=== PATIENT | female | born 1960 | race Caucasian/White ===

== ENCOUNTER 2019-12-09 19:00 | Emergency (ER) | payer OTHER, SELFPAY ==
--- NOTE | ~2019-12-09 | CT_ITS ---
. EXAMINATION: CT facial bones w con DATE: 12/09/2019 20:29 INDICATION: Left-sided facial swelling and dentalgia. TECHNIQUE: Computed tomography (CT) of the facial bones and maxillofacial region was performed withou t intravenous contrast. Coronal reconstructions were obtained. The dose-length product was 329.72 mGy -cm. COMPARISON: None. FINDINGS: Soft tissue swelling with subcutaneous edema without discrete abscess overlying the left mandible. Mu ltiple dental restorations and several scattered dental caries including the anterior premolar and an terior molar along the left mandible but without deeper periapical erosion. No maxillofacial fracture s or cortical erosions. Mild asymmetric enlargement of still normal-sized likely reactive left subman dibular lymph nodes. The deeper spaces of the neck appear normal. Bilateral parotid and submandibular glands appear normal and symmetric. Orbits are normal. Small mucous retention cyst along the floor o f the left maxillary sinus. Mild atherosclerotic calcification without stenosis at the left carotid b ulb. Vasculature is otherwise unremarkable. Mild to moderate upper cervical facet osteoarthritis. IMPRESSION: 1. Nonspecific soft tissue swelling with subcutaneous edema along the left mandible consistent with s ynovitis of indeterminate etiology. No abscess or underlying osseous abnormality. Reviewed, dictated and finalized at location A. IMPRESSION: 1. Nonspecific soft tissue swelling with subcutaneous edema along the left lacy ible consistent with synovitis of indeterminate etiology. No abscess or underly ing osseous abnormality.
[2019-12-09 19:02] VITALS: BP 187/109; PULSE 90; RESP 20; TEMP 36.6; O2SAT 100
--- NOTE | 2019-12-09 20:06 | ED.DENTAL ---
HPI - Dental/Oral General Chief complaint: Dental/Oral Stated complaint: L facial swelling Time Seen by Provider: 12/09/19 19:10 Source: patient Mode of arrival: ambulatory Limitations: no limitations History of Present Illness HPI Narrative: This is a 59-year-old female that presents the emergency department for toothache x1 week. Reports she has a tooth that is broken. Reports over the last week it has become painful. She has been taking [id number] medications with little relief. Reports yesterday she started to have swelling to the area. Denies fever. MD Complaint: tooth pain Location: Tooth # (18) Related Data Allergies Allergy/AdvReac Type Severity Reaction Status Date / Time Penicillins Allergy Unknown Rash Verified 12/09/19 19:06 tramadol Allergy Other Verified 12/09/19 19:06 Review of Systems Review of Systems: Narrative: CONSTITUTIONAL: Denies fever ENT: Reports dentalgia All systems reviewed & are unremarkable except as noted in HPI and below PMFSH Past Medical History Medical History (Updated 12/09/19 @ 21:19 by Danna Lazar PA-C) History of chronic back pain Social History Social History (Updated 12/09/19 @ 20:09 by Danna Lazar PA-C) Smoking status: Never smoker Second hand tobacco smoke exposure: No Alcohol intake: current Substance use: never Gender identity (if verbalized by the patient): Female Exam Narrative: Exam Narrative: GENERAL: Well-appearing, well-nourished, and in no acute distress. HEAD: Normocephalic, atraumatic. EYES: EOMI. ENT: Mucous membranes moist. Oropharynx without tonsillar hypertrophy, exudate or other lesions. Poor dentition. Tooth #18 tender to palpation with surrounding edema. Edema noted to the left side of the mandible. No trismus NECK: Supple. No adenopathy or masses. CHEST: Airway patent EXTREMITIES: Normal range of motion. No edema. SKIN: Warm, dry, no rash. NEURO: No focal deficits. Alert and oriented x3. PSYCH: Normal mood and affect Course Vital Signs Vital signs: Vital Signs Temperature 98 F 12/09/19 19:02 Pulse Rate 90 12/09/19 19:02 Respiratory Rate 20 12/09/19 19:02 Blood Pressure 187/109 H 12/09/19 19:02 Pulse Oximetry 100 12/09/19 19:02 Temperature 98 F 12/09/19 19:02 Pulse Rate 90 12/09/19 19:02 Respiratory Rate 20 12/09/19 19:02 Blood Pressure 187/109 H 12/09/19 19:02 Pulse Oximetry 100 12/09/19 19:02 MDM - Dental/Oral MDM Narrative Medical decision making narrative: Patient presents the emergency department for toothache x1 week. She is afebrile and nontoxic-appearing. CBC with lymphocytopenia with red blood cell count of 3. Patient also thrombocytopenic with platelets of 66. This appears to be chronic for her. Spoke with patient about this and reports she has been seen by quick mixer operator for this in the past. No concerning elevation in inflammatory markers. Mild hypokalemia on metabolic panel.. Patient given a dose of oral potassium in the ED. CT scan of the facial bones shows nonspecific soft tissue swelling with subcutaneous edema along the left mandible, no abscess. Patient given a dose of IV antibiotics in the ED. Will be started on oral antibiotics. Was instructed to follow-up with her dentist. Patient was given warnings to return to the ER Lab Data Attestation: I reviewed the patient's lab results. Result diagrams: 12/09/19 20:08 12/09/19 20:39 Labs: Lab Results 12/09/19 12/09/19 12/09/19 Range/Units 20:08 20:24 20:39 WBC 3.0 L (4.5-10.0) K/mm3 RBC 3.76 L (4.2-5.4) M/mm3 Hgb 11.9 L (12.0-15.0) g/dL Hct 35.7 L (37.0-47.0) % MCV 94.9 (80-100) fl MCH 31.6 (26-34) pg MCHC 33.3 (32-36) g/dl RDW 14.4 (11.5-14.5) % Plt Count 66 L (150-375) k/mm3 MPV Not Reportable Immature Gran % (Auto) 0.0 (0-0.5) % Neut % (Auto) 64.4 (45.5-73.1) % Lymph % (Auto) 21.3 (18.3-44.2) % Ashley
[2019-12-09 20:23] LABS: Basophils Percent Auto 0.3 % (0.2-1.2); Eosinophils Absolute Auto 0.1 K/mm3 (0-0.3); Eosinophils Percent Auto 2.3 % (0-4.4); Hematocrit 35.7 % (37.0-47.0); Hemoglobin 11.9 g/dL (12.0-15.0); Immature Platelet Fraction Pct 2.9 % (0.9-11.2); Lymphocytes Absolute Auto 0.64 K/mm3 (0.9-3.2); Lymphocytes Percent Auto 21.3 % (18.3-44.2); Mean Corpuscular HGB Conc 33.3 g/dl (32-36); Mean Corpuscular Hemoglobin 31.6 pg (26-34); Mean Corpuscular Volume 94.9 fl (80-100); Monocytes Absolute Auto 0.4 K/mm3 (0.1-0.6); Monocytes Percent Auto 11.7 % (2.6-8.5); Neutrophils Absolute Auto 1.9 K/mm3 (1.3-6.7); Neutrophils Percent Auto 64.4 % (45.5-73.1); Platelet Count Result 66 k/mm3 (150-375); Red Blood Count 3.76 M/mm3 (4.2-5.4); Red Cell Distribution Width 14.4 % (11.5-14.5)
[2019-12-09 20:26] LABS: Estimated CRCL calculation 130 ml/min; Estimated Glomerular Filt Rate > 60
--- NOTE | 2019-12-09 20:37 | PC.NURSE ---
LAB STATES BLOOD HEMOLYZED. CONFERENCE INTERPRETER AT BEDSIDE TO REDRAW BLOOD
[2019-12-09 21:00] LABS: Blood Urea Nitrogen 8 mg/dL (7-17); CRP 1.8 mg/dL (<1.0); Calcium 8.2 mg/dL (8.4-10.2); Carbon Dioxide 26 mmol/L (22-30); Chloride 106 mmol/L (98-107); Estimated CRCL calculation 158 ml/min; Estimated Glomerular Filt Rate > 60; Glucose 85 mg/dL (65-105); Potassium 3.3 mmol/L (3.4-5.0); Sodium 136 mmol/L (137-145)
[2019-12-09 21:00] LABS: Erythrocyte Sedimentation Rate 25 mm/hr (0-20)
[2019-12-09] MEDS: POTASSIUM CHLORIDE 20 MEQ TABLET PO (21:38)
[2019-12-09] MEDS: CLINDAMYCIN 600 MG/NS 50 ML 600 MG/50 ML PIGGYBACK 100 MG IVPB (21:38)
[2019-12-09 22:33] VITALS: BP 164/82; PULSE 76; RESP 20; O2SAT 97
== END 2019-12-09 22:34 | disposition home or self-care (01) ==
PROVIDERS: Physician Assistant; Emergency Provider Emergency Medicine; PCP Nurse Practitioner Adult Health
DX: K08.89 Other specified disorders of teeth and supporting structures (principal); R93.0 Abnormal findings on diagnostic imaging of skull and head, not elsewhere classified
CPT/HCPCS: 36415; 70487; 80048; 85025; 85055; 85652; 86140; 96365; 99284; A9270; Q9967

== ENCOUNTER 2019-12-23 16:31 | Emergency (ER) | payer OTHER, SELFPAY ==
--- NOTE | ~2019-12-23 | CT_ITS ---
EXAMINATION: CT facial & cervical spine wo DATE: 12/23/2019 17:08 INDICATION: Patient fell and struck face. Facial, neck injury TECHNIQUE: Computed tomography (CT) of the facial bones and maxillofacial region was performed withou t intravenous contrast. Automated exposure control and iterative reconstruction technique were employ ed. Exam dose: 490.26 mGy-cm total exam DLP. COMPARISON: None. FINDINGS: No facial fracture is evident. There is a metallic sutures, psychotic arches, orbital rims and thibodeaux are intact. No mandible fracture or dislocation. The ocular globes are intact. No retrobulbar hematoma. Small mucous retention cyst in the floor of th e left maxillary sinus. The paranasal sinuses are otherwise unremarkable. There is moderately severe degenerative disease with prominent posterior spurring at C5-6. C1 and C2 are normally aligned and the odontoid process is intact. No fracture or dislocation or lock ed facet or prevertebral soft tissue swelling. IMPRESSION: No facial and cervical spine fracture Moderately severe degenerative disc disease and prominent posterior spurring at C5-6 Reviewed, dictated and finalized at [facility]. Reviewed, dictated and finalized at location A.
--- NOTE | ~2019-12-23 | CT_ITS ---
EXAMINATION: CT brain wo con DATE: 12/23/2019 17:08 INDICATION: Patient fell and struck face. TECHNIQUE: Computed tomography (CT) of the head was performed without intravenous contrast. The mA wa s adjusted according to patient size. Iterative reconstruction technique was employed. Exam dose: 60 5.33 mGy-cm total exam DLP. COMPARISON: 08/05/2018 CT brain FINDINGS: No intracranial mass lesion or hemorrhage, midline shift or mass effect. Normal ventricular size. There is nonspecific diminished attenuation of the cerebral white matter, likely due to chroni c small vessel ischemic changes. No subdural or epidural hematoma. No fracture or bone destruction of the cranial vault. The mastoid air cells and paranasal sinuses are normally developed and aerated. IMPRESSION: Nonspecific diminished attenuation cerebral white matter, likely due to chronic small ve ssel ischemic changes No acute intracranial finding Reviewed, dictated and finalized at [facility]. Reviewed, dictated and finalized at location A. IMPRESSION: Nonspecific diminished attenuation cerebral white matter, likely d ue to chronic small vessel ischemic changes No acute intracranial finding
[2019-12-23 16:30] VITALS: BP 157/85; PULSE 79; RESP 16; TEMP 36.2; O2SAT 99
--- NOTE | 2019-12-23 17:35 | ED.HEATRA ---
HPI - Head Injury General Chief complaint: Head Injury Stated complaint: fall Time Seen by Provider: 12/23/19 16:47 Source: patient Mode of arrival: EMS Limitations: no limitations History of Present Illness HPI Narrative: This is a 59 year old female that presents to the ER for head injury today. Reports she was moving furniture and tripped and hit her face on her dresser. Reports a laceration to her lip. She is not up to date on tetanus. Denies loss of consciousness, joint pain, vision changes, vomiting, or numbness. Related Data Allergies Allergy/AdvReac Type Severity Reaction Status Date / Time Penicillins Allergy Unknown Rash Verified 12/09/19 19:06 tramadol Allergy Other Verified 12/09/19 19:06 Review of Systems Review of Systems: Narrative: CONSTITUTIONAL: Denies fever EYES: Denies visual changes GASTROINTESTINAL: Denies vomiting MUSCULOSKELETAL: Denies back pain, joint pain, or myalgia. NEUROLOGIC: Denies headache, numbness, or weakness. All systems reviewed & are unremarkable except as noted in HPI and below PMFSH Past Medical History Medical History (Updated 12/23/19 @ 18:58 by Danna Lazar PA-C) History of chronic back pain Social History Social History (Updated 12/09/19 @ 20:09 by Danna Lazar PA-C) Smoking status: Never smoker Second hand tobacco smoke exposure: No Alcohol intake: current Substance use: never Gender identity (if verbalized by the patient): Female Exam Narrative: Exam Narrative: GENERAL: Well-appearing, obese, and in no acute distress. HEAD: Normocephalic. Laceration of the bottom lip wet vermilion that is 1 cm with active oozing EYES: PERRLA and EOMI. ENT: Nares clear, no rhinorrhea or epistaxis. Mucous membranes moist. Oropharynx without tonsillar hypertrophy exudate or other lesions. Bilateral TMs pearly da silva non-bulging NECK: Supple. No adenopathy or masses. No midline cervical spine tenderness CHEST: Clear to auscultation. No respiratory distress. No wheezes rales or rhonchi HEART: Regular rate and rhythm. No murmur heard. Normal peripheral pulses. EXTREMITIES: Normal range of motion. No edema or obvious deformity. Strength equal in bilateral upper extremities SKIN: Warm, dry, no rash. NEURO: No focal deficits. Alert and oriented x3. Cranial nerves II through XII grossly intact PSYCH: Normal mood and affect Course Vital Signs Vital signs: Vital Signs Temperature 97.2 F L 12/23/19 16:30 Pulse Rate 79 12/23/19 16:30 Respiratory Rate 16 12/23/19 16:30 Blood Pressure 157/85 H 12/23/19 16:30 Pulse Oximetry 99 12/23/19 16:30 Temperature 97.2 F L 12/23/19 16:30 Pulse Rate 79 12/23/19 16:30 Respiratory Rate 16 12/23/19 16:30 Blood Pressure 157/85 H 12/23/19 16:30 Pulse Oximetry 99 12/23/19 16:30 Procedures Laceration Laceration 1: Date: 12/23/19 Time: 18:56 Site: lip Size (cm): 1 Description: linear Depth: simple, single layer Local Anesthetic: lidocaine 1% Amount of anesthesia used (mL): 1 Pre-repair: irrigated ====== Skin Level ====== Skin layer closed with: other (chromic gut) Size (cm): 5-0 Number of sutures: 1 Technique: simple, interrupted ====== Subcutaneous Layer ====== ====== Muscle Layer ====== ====== Tendon Layer ====== MDM - Head Injury MDM Narrative Medical decision making narrative: Patient presents the emergency department for a fall today with head injury. Patient's vitals are stable. She is neurologically intact. CT scan of the brain is without acute findings. CT scan of the cervical and facial bones is also without acute findings. Patient sustained a laceration to the inner, bottom lip which was sutured. Patient was updated on tetanus. Patient is to follow-up with her primary care doctor. She was given warnings to return to the ER Imaging Data Radiologist's impression: ITS Impressi
[2019-12-23] MEDS: TETANUS,DIPHTHERIA,AC PERTUSSIS ADULT (0.5 ML) BOOSTRIX IM (17:55)
--- NOTE | 2019-12-23 18:19 | PC.NURSE ---
pa at bedside to suture
[2019-12-23 19:10] VITALS: BP 150/81; PULSE 71; RESP 15; O2SAT 98
== END 2019-12-23 19:10 | disposition home or self-care (01) ==
PROVIDERS: Emergency Provider Emergency Medicine; PCP Nurse Practitioner Adult Health
DX: S01.511A Laceration without foreign body of lip, initial encounter (principal); S09.90XA Unspecified injury of head, initial encounter; Z23 Encounter for immunization; M50.30 Other cervical disc degeneration, unspecified cervical region; W01.190A Fall on same level from slipping, tripping and stumbling with subsequent striking against furniture, initial encounter
CPT/HCPCS: 12011; 70450; 70486; 72125; 90471; 90715; 99284; A9270

== ENCOUNTER 2020-01-31 15:57 | Outpatient (CLI) | payer OTHER, SELFPAY ==
[2020-01-31 17:19] LABS: Basophils Percent Auto 0.5 % (0.2-1.2); Eosinophils Absolute Auto 0.1 K/mm3 (0-0.3); Eosinophils Percent Auto 2.4 % (0-4.4); Hematocrit 32.1 % (37.0-47.0); Hemoglobin 10.8 g/dL (12.0-15.0); Lymphocytes Absolute Auto 0.55 K/mm3 (0.9-3.2); Lymphocytes Percent Auto 26.2 % (18.3-44.2); Mean Corpuscular HGB Conc 33.6 g/dl (32-36); Mean Corpuscular Hemoglobin 32.6 pg (26-34); Mean Platelet Volume 12.3 fl (7.4-10.4); Monocytes Absolute Auto 0.3 K/mm3 (0.1-0.6); Monocytes Percent Auto 14.3 % (2.6-8.5); Neutrophils Absolute Auto 1.2 K/mm3 (1.3-6.7); Neutrophils Percent Auto 56.6 % (45.5-73.1); Platelet Count Result 75 k/mm3 (150-375); Red Blood Count 3.31 M/mm3 (4.2-5.4); Red Cell Distribution Width 15.5 % (11.5-14.5); White Blood Count 2.1 K/mm3 (4.5-10.0)
[2020-01-31 17:22] LABS: Alanine Aminotransferase 22 U/L (4-35); Albumin Level 2.6 g/dL (3.5-5.1); Alkaline Phosphatase 213 U/L (38-126); Anion Gap 4 mmol/L (8-16); Aspartate Amino Transferase 62 U/L (14-36); Bilirubin,Total 2.3 mg/dL (0.2-1.3); Blood Urea Nitrogen 7 mg/dL (7-17); Calcium 8.2 mg/dL (8.4-10.2); Carbon Dioxide 28 mmol/L (22-30); Chloride 103 mmol/L (98-107); Estimated Glomerular Filt Rate > 60; Glucose 97 mg/dL (65-105); Sodium 135 mmol/L (137-145)
[2020-01-31 17:58] LABS: Vitamin D 25 Hydroxy 22.3 ng/mL
== END 2020-01-31 15:58 | disposition home or self-care (01) ==
PROVIDERS: PCP Nurse Practitioner Adult Health; Visit Provider Nurse Practitioner Adult Health
DX: K76.0 Fatty (change of) liver, not elsewhere classified (principal); E55.9 Vitamin D deficiency, unspecified; D72.819 Decreased white blood cell count, unspecified
CPT/HCPCS: 36415; 80048; 80076; 82306; 85025; 85055

== ENCOUNTER 2020-02-21 15:39 | Outpatient (CLI) | payer OTHER, SELFPAY ==
--- NOTE | ~2020-02-21 | XR_ITS ---
XR chest 2V DATE: 02/21/2020 16:58 INDICATION: Decreased white blood cell count. History of Covid-positive status 02/02/2020. TECHNIQUE: PA and lateral views COMPARISON: 08/19/2018 AP and lateral chest FINDINGS: There are multiple surgical clips overlying the right axillary area. Heart size is within normal limits. No hilar or mediastinal enlargement. There is thoracic aortic ect nicole. No pulmonary infiltrate or consolidation, pleural effusion or pulmonary vascular congestion or pneumo thorax is detected. Surgical clips, right upper quadrant, consistent with cholecystectomy. Osteopenia. Dextroscoliosis of the thoracic spine and levoscoliosis of the lumbar spine. IMPRESSION: No active disease or significant change since 08/19/2018 Reviewed, dictated and finalized at location [facility].
[2020-02-21 18:21] LABS: Potassium 3.7 mmol/L (3.4-5.0)
[2020-02-21 18:29] LABS: Parathyroid Intact 14.8 pg/mL (7.5-53.5)
[2020-02-21 18:33] LABS: Vitamin D 25 Hydroxy 33.9 ng/mL
[2020-02-21 22:18] LABS: Iron 179 ug/dL (37-170)
[2020-02-21 22:19] LABS: Percent Iron Saturation 59 % (20-50)
[2020-02-22 00:37] LABS: Folic Acid 15.1 ng/mL (2.76->20)
== END 2020-02-21 15:40 | disposition home or self-care (01) ==
PROVIDERS: PCP Nurse Practitioner Adult Health; Visit Provider Nurse Practitioner Adult Health
DX: D72.819 Decreased white blood cell count, unspecified (principal); D64.9 Anemia, unspecified; E83.51 Hypocalcemia; E87.6 Hypokalemia
CPT/HCPCS: 36415; 71046; 82306; 82607; 82728; 82746; 83540; 83550; 83970; 84132

== ENCOUNTER 2020-02-23 15:10 | Outpatient (CLI) | payer OTHER, SELFPAY ==
[2020-02-23 16:08] LABS: IFOB Positive Control Positive; Immunochemical Fecal Occult Bl Negative (N)
== END 2020-02-23 15:11 | disposition home or self-care (01) ==
PROVIDERS: PCP Nurse Practitioner Adult Health; Visit Provider Nurse Practitioner Adult Health
DX: D72.819 Decreased white blood cell count, unspecified (principal); D64.9 Anemia, unspecified; E83.51 Hypocalcemia; E87.6 Hypokalemia
CPT/HCPCS: 82274

== ENCOUNTER 2020-07-10 14:54 | Outpatient (CLI) | payer OTHER, SELFPAY ==
[2020-07-10 16:11] LABS: Iron 131 ug/dL (37-170)
[2020-07-10 16:20] LABS: Percent Iron Saturation 50 % (20-50)
[2020-07-10 16:38] LABS: Vitamin D 25 Hydroxy 30.3 ng/mL
[2020-07-10 18:13] LABS: Folic Acid > 20.0 ng/mL (2.76->20)
[2020-07-10 18:33] LABS: Parathyroid Intact 18.8 pg/mL (7.5-53.5)
== END 2020-07-10 14:55 | disposition home or self-care (01) ==
LOC: ANHLAB 14:59
PROVIDERS: PCP Nurse Practitioner Adult Health; Visit Provider Nurse Practitioner Adult Health
DX: E83.51 Hypocalcemia (principal); D64.9 Anemia, unspecified
CPT/HCPCS: 36415; 82306; 82607; 82728; 82746; 83540; 83550; 83970

== ENCOUNTER 2021-01-19 14:37 | Emergency (ER) | payer MEDICARE, MEDICAID, SELFPAY ==
--- NOTE | ~2021-01-19 | CT_ITS ---
EXAMINATION: CT lumbar spine wo con DATE: 01/19/2021 16:49 INDICATION: Low back pain after pain management injection, history of breast cancer TECHNIQUE: Computed tomography (CT) of the lumbar spine was performed without intravenous contrast. T he dose-length product (DLP) was 1396.87 mGy-cm. Iterative reconstruction was used. COMPARISON: MRI, 01/20/2019 FINDINGS: Thoracolumbar levoscoliosis is again noted. There is no fracture. There is asymmetric loss of intervertebral disc space height on the right at L2-3 and L3-4. The vertebral body heights are senia ntained. There is moderate multilevel facet osteoarthritis. IMPRESSION: 1. Moderate lumbar spondylosis without acute findings or significant interval change. Reviewed, dictated and finalized at location A. IMPRESSION: 1. Moderate lumbar spondylosis without acute findings or significant interval sonu erickson
[2021-01-19 14:45] VITALS: BP 146/88; PULSE 83; RESP 20; TEMP 36.6; O2SAT 99
[2021-01-19] MEDS: HYDROcodone/acetaminophen (*CRX) 5-325 MG TABLET 1 TAB PO (16:36)
[2021-01-19] MEDS: KETOROLAC 30 MG/ML VIAL (*BKC) IV PUSH (16:36)
[2021-01-19] MEDS: diazePAM (*CRX) 5 MG TABLET PO (16:36)
[2021-01-19 17:06] VITALS: TEMP 36.6
--- NOTE | 2021-01-19 17:34 | ED.GENADULT ---
HPI - General Adult General Chief complaint: Back Pain/Injury Stated complaint: back pain, chronic Source: patient, EMS and RN notes reviewed Mode of arrival: EMS Limitations: no limitations History of Present Illness HPI narrative: Patient is a 60-year-old male who presents to emergency department for evaluation of low back pain patient had a pain injection the lower lumbar region Wednesday developed aching pain that is a moderate aching pain she has been taking her medications as instructed with no improvement she has a history of chronic low back pain followed by primary care and pain management for this on arrival patient appears uncomfortable but not distressed Related Data Home Medications Medication Instructions Recorded Confirmed Celebrex 01/19/21 Vitamin D2 01/19/21 duloxetine mg PO 01/19/21 potassium chloride meq 01/19/21 tizanidine mg 01/19/21 tramadol mg 01/19/21 Allergies Allergy/AdvReac Type Severity Reaction Status Date / Time Penicillins Allergy Unknown Rash Verified 12/09/19 19:06 morphine AdvReac Vomiting Verified 01/19/21 16:37 Review of Systems Review of Systems: All systems reviewed & are unremarkable except as noted in HPI and below PMFSH Past Medical History Medical History History of chronic back pain Social History Social History Smoking status: Never smoker Second hand tobacco smoke exposure: No Alcohol intake: current Substance use: never Gender identity (if verbalized by the patient): Female Exam Narrative: GENERAL: Well-appearing, well-nourished, and in no acute distress. HEAD: Normocephalic, atraumatic. EYES: PERRLA and EOMI. ENT: Nares clear, no rhinorrhea or epistaxis. Mucous membranes moist. CHEST: Clear to auscultation. No respiratory distress. No wheezes rales or rhonchi HEART: Regular rate and rhythm. No murmur heard. Normal peripheral pulses. ABDOMEN: Soft, nontender, nondistended EXTREMITIES: Normal range of motion. No edema. Tenderness of the lumbar spine no deformities noted small bruising at the injection site SKIN: Warm, dry, no rash. NEURO: No focal deficits. Alert and oriented x3. Cranial nerves II through XII grossly intact. Normal speech PSYCH: Normal mood and affect. Course Course Emergency Course: Patient in the room no distress evaluated for low back pain will be discharged home with pain management follow-up medicated in the emergency department hemodynamically stable ABCs and vital signs intact and stable Vital Signs Vital signs: Vital Signs Temperature 97.8 F 01/19/21 14:45 Pulse Rate 83 01/19/21 14:45 Respiratory Rate 20 01/19/21 14:45 Blood Pressure 146/88 H 01/19/21 14:45 Pulse Oximetry 99 01/19/21 14:45 Temperature 97.8 F 01/19/21 14:45 Pulse Rate 83 01/19/21 14:45 Respiratory Rate 20 01/19/21 14:45 Blood Pressure 146/88 H 01/19/21 14:45 Pulse Oximetry 99 01/19/21 14:45 Medical Decision Making MDM Narrative Medical decision making narrative: Patients pain is positional in nature and localized to back without signs of cord compression or cauda equina based on neurological exam, skeletal exam and history. No fever or other significant factors to suggest osteomyelitis or spinal epidural abscess. No symptoms or signs to suggest pain is referred from abdominal or / cardiopulmonary sources. No pulsatile masses noted on exam. Patient ambulates with steady gait and is stable for outpatient management given case findings. Vital Signs Vital Signs: Vital Signs Temperature 97.8 F 01/19/21 14:45 Pulse Rate 83 01/19/21 14:45 Respiratory Rate 01/19/21 14:45 Blood Pressure 146/88 H 01/19/21 14:45 Pulse Oximetry 99 01/19/21 14:45 Temperature 97.8 F 01/19/21 14:45 Pulse Rate 83 01/19/21 14:45 Respiratory Rate 01/19/21 14:45 Blood Pressure
[2021-01-19 18:22] VITALS: BP 142/78; PULSE 78; RESP 18; O2SAT 97
== END 2021-01-19 18:38 | disposition home or self-care (01) ==
PROVIDERS: Emergency Provider Emergency Medicine; PCP Nurse Practitioner Adult Health
DX: M54.5 Low back pain (principal); G89.29 Other chronic pain; M47.816 Spondylosis without myelopathy or radiculopathy, lumbar region
CPT/HCPCS: 72131; 96374; 99284; A9270; J1885

== ENCOUNTER 2021-01-21 16:17 | Outpatient (CLI) | payer MEDICARE, SELFPAY ==
[2021-01-21 17:35] LABS: Add Urine Microscopic? YES; Appearance Urine Clear (Clear); Bilirubin Urine Negative (Negative); Blood Urine 1+ (Negative); Color Urine Amber (Yellow); Glucose Urine UA Negative (Negative); Ketones Urine Negative (Negative); Leukocyte Esterase Ur Negative LEU/UL (Negative); Mucus Urine Heavy /lpf; Nitrate Urine Negative (Negative); Protein Urine 2+ mg/dL (Negative); RBC Urine >75 /hpf (0-2); Squamous Epithelial Cell Urine Many /hpf (Few); WBC Urine 31-50 /hpf
[2021-01-21 17:37] LABS: Specific Grav Ur 1.038 (1.001-1.035)
== END 2021-01-21 16:18 | disposition home or self-care (01) ==
LOC: ANHLAB 16:20
PROVIDERS: PCP Nurse Practitioner Adult Health; Visit Provider Nurse Practitioner Adult Health
DX: R39.9 Unspecified symptoms and signs involving the genitourinary system (principal)
CPT/HCPCS: 81001; 87086; 87088

== ENCOUNTER 2021-01-24 23:05 | Emergency (ER) | payer MEDICARE, MEDICAID, SELFPAY ==
--- NOTE | ~2021-01-24 | CT_ITS ---
EXAMINATION: CT abdomen pelvis w con DATE: 01/25/2021 02:47 INDICATION: Severe back pain for one week TECHNIQUE: Computed tomography (CT) of the abdomen and pelvis was performed with 100 cc Omnipaque 350 intravenous contrast. The dose-length product was 1591.44 mGy-cm. Automated exposure control and ite rative reconstruction technique were employed. COMPARISON: CT dated 08/05/2018. FINDINGS: Lung bases are unremarkable. There is cirrhosis of the liver with splenomegaly and upper ab dominal varices, consistent with portal hypertension. Status post cholecystectomy with expected promi nence of the bile ducts. No significant pleural or pericardial effusion. There is diffuse abdominal s ubcutaneous edema and fluid. The pancreas, adrenal glands and kidneys are unremarkable. Nonobstructiv e bowel gas pattern. Moderate lumbar spondylosis with levoscoliosis. IMPRESSION: 1. No acute abdominal abnormality. 2: Cirrhosis with findings associated with portal hypertension. Reviewed, dictated and finalized at location A.
[2021-01-24 23:21] VITALS: BP 157/65; PULSE 68; RESP 16; TEMP 36.8; O2SAT 100
[2021-01-25] VITALS (7 sets, daily range): BP systolic 129–161; BP diastolic 71–82; PULSE 66–71; RESP 10–26; TEMP 38.4; O2SAT 99–100
--- NOTE | 2021-01-25 00:08 | ED.BACK ---
HPI - Back Pain/Injury History of Present Illness HPI Narrative: Chronic low back pain. Worse for the past week. She has been seen by her PCP and in the ED since this started. No Trauma, fever, weakness, numbness, incontinence, dysuria, hematuria. Related Data Home Medications Medication Instructions Recorded Confirmed tramadol mg 01/19/21 Tylenol-Codeine #3 01/24/21 celecoxib mg 01/24/21 duloxetine mg PO 01/24/21 ergocalciferol (vitamin D2) 01/24/21 potassium chloride meq PO 01/24/21 tizanidine mg 01/24/21 Allergies Allergy/AdvReac Type Severity Reaction Status Date / Time Penicillins Allergy Unknown Rash Verified 12/09/19 19:06 morphine AdvReac Vomiting Verified 01/19/21 16:37 Review of Systems Review of Systems: All systems reviewed & are unremarkable except as noted in HPI and below Constitutional: Constitutional: Denies fever(s) and Denies weakness Cardiovascular: Cardiovascular: Denies chest pain Respiratory: Respiratory: Denies dyspnea Gastrointestinal: Gastrointestinal: Denies abdominal pain Genitourinary: Genitourinary: Reports no additional female genitourinary complaints Neurologic: Reports numbness and Denies weakness [facility] Past Medical History Medical History History of chronic back pain Social History Social History Smoking status: Never smoker Second hand tobacco smoke exposure: No Alcohol intake: current Substance use: never Gender identity (if verbalized by the patient): Female Exam Const: General: no acute distress and alert Nutritional Appearance: obese Orientation/consciousness: patient oriented x3 HENMT: Head: normal to inspection Neck: Neck: normal visual inspection and no lymphadenopathy Resp: Effort & Inspection: normal respiratory effort Auscultation: clear to auscultation bilaterally, no rales, no rhonchi and no wheezes Cardio: Jugular venous distension: no JVD Rate: regular rate Rhythm: regular rhythm Heart sounds: no murmurs GI: Inspection: non-distended GI Palp: Yes Soft to palpation and No Tenderness to palpation present (GI) Back/Spine/Pelvis: Thoracic/Lumbar Spine: paraspinal muscle tenderness Pelvis: buttock tenderness Skin: General skin exam: normal color Neuro: General: patient oriented x3 and moves all extremities Speech: normal speech Gait exam (Neuro): Normal gait present Extrem: General: normal to inspection and edema Psych: Appearance: well kempt Affect: normal affect Course Vital Signs Vital signs: Vital Signs Temperature 36.8 C 01/24/21 23:21 Pulse Rate 68 01/24/21 23:21 Respiratory Rate 16 01/24/21 23:21 Blood Pressure 157/65 H 01/24/21 23:21 Pulse Oximetry 100 01/24/21 23:21 Temperature 38.4 C H 01/25/21 00:04 Pulse Rate 66 01/25/21 02:53 Respiratory Rate 10 L 01/25/21 02:53 Blood Pressure 161/71 H 01/25/21 02:53 Pulse Oximetry 100 01/25/21 02:53 MDM - Back Pain/Injury Differential Diagnosis Differential diagnosis: Likely lumbar radiculopathy, sciatica, strain of lumbar region, renal colic and pyelonephritis Medical Records Attestation: I reviewed the patient's medical records. Lab Data Attestation: I reviewed the patient's lab results. Result diagrams: 01/25/21 00:53 01/25/21 00:53 Labs: Lab Results 01/25/21 01/25/21 01/25/21 Range/Units 00:53 00:53 00:53 WBC 5.2 (4.5-10.0) K/mm3 RBC 3.31 L (4.2-5.4) M/mm3 Hgb 11.5 L (12.0-15.0) g/dL Hct 35.0 L (37.0-47.0) % MCV 105.7 H (80-100) fl MCH 34.7 H (26-34) pg MCHC 32.9 (32-36) g/dl RDW 14.5 (11.5-14.5) % Plt Count 138 L D (150-375) k/mm3 MPV 12.7 H (7.4-10.4) fl Immature Gran % (Auto) 0.4 (0-0.5) % Neut % (Auto) 63.6 (45.5-73.1) % Lymph % (Auto) 20.3 (18.3-44.2) % [place] % (Auto) 14.3 H (2.6-8.5) % Eos
[2021-01-25 01:02] LABS: Basophils Percent Auto 0.4 % (0.2-1.2); Eosinophils Absolute Auto 0.1 K/mm3 (0-0.3); Hemoglobin 11.5 g/dL (12.0-15.0); Immature Granulocyte Absolute 0.02 K/mm3 (0.00-0.031); Immature Granulocyte Percent A 0.4 % (0-0.5); Lymphocytes Absolute Auto 1.05 K/mm3 (0.9-3.2); Lymphocytes Percent Auto 20.3 % (18.3-44.2); Mean Corpuscular HGB Conc 32.9 g/dl (32-36); Mean Corpuscular Hemoglobin 34.7 pg (26-34); Mean Corpuscular Volume 105.7 fl (80-100); Mean Platelet Volume 12.7 fl (7.4-10.4); Monocytes Absolute Auto 0.7 K/mm3 (0.1-0.6); Monocytes Percent Auto 14.3 % (2.6-8.5); Neutrophils Absolute Auto 3.3 K/mm3 (1.3-6.7); Neutrophils Percent Auto 63.6 % (45.5-73.1); Platelet Count Result 138 k/mm3 (150-375); Red Blood Count 3.31 M/mm3 (4.2-5.4); Red Cell Distribution Width 14.5 % (11.5-14.5); White Blood Count 5.2 K/mm3 (4.5-10.0)
[2021-01-25 01:15] LABS: Lactic Acid Reflex 3.8 mmol/L (0.7-2.1)
[2021-01-25 01:16] LABS: INR 1.4; Prothrombin Time 17.1 Seconds (11.1-14.7)
[2021-01-25 01:17] LABS: Partial Thromboplastin Time 37.7 SECONDS (22.3-36.8)
--- NOTE | 2021-01-25 01:17 | PC.NURSE ---
pt here c daughter. c/o lower back pain. seen here last week for same. awaiting results of urine test from same visit. pt yelling and moaning in pain. unable to sit still for lab draw or to keep monitoring leads on.
[2021-01-25 01:18] LABS: Alanine Aminotransferase 30 U/L (4-35); Albumin Level 2.7 g/dL (3.5-5.1); Alkaline Phosphatase 164 U/L (38-126); Anion Gap 6 mmol/L (8-16); Aspartate Amino Transferase 76 U/L (14-36); Bilirubin,Total 4.2 mg/dL (0.2-1.3); Blood Urea Nitrogen 16 mg/dL (7-17); Calcium 8.7 mg/dL (8.4-10.2); Carbon Dioxide 25 mmol/L (22-30); Chloride 102 mmol/L (98-107); Estimated CRCL calculation 137 ml/min; Estimated Glomerular Filt Rate > 60; Glucose 139 mg/dL (65-110); Potassium 4.1 mmol/L (3.4-5.0); Sodium 133 mmol/L (137-145)
[2021-01-25 01:31] LABS: CRP 18.2 mg/dL (<1.0)
--- NOTE | 2021-01-25 02:03 | PC.NURSE ---
Pt done using restroom. in wc. laboratory technical specialist in room to draw 2nd set of blood cultures. pt now stating that she cannot get out of wc to ct table and needs to be lifted back into bed first. this RN has called skydiving instructor x 3, and each time pt not ready for scan, causing delay in care. charge nurse notified.
[2021-01-25 02:08] LABS: Add Urine Microscopic? YES; Appearance Urine Clear (Clear); Bacteria Urine Trace /hpf; Bilirubin Urine 1+ (Negative); Blood Urine 2+ (Negative); Color Urine Amber (Yellow); Glucose Urine UA Negative (Negative); Ketones Urine Negative (Negative); Leukocyte Esterase Ur Negative LEU/UL (Negative); Mucus Urine Rare /lpf; Nitrate Urine Negative (Negative); Protein Urine Negative (Negative); Specific Grav Ur 1.017 (1.001-1.035); Squamous Epithelial Cell Urine Many /hpf (Few); WBC Urine 0-3 /hpf
[2021-01-25] MEDS: SODIUM CHLORIDE 0.9% IV 1,000 ML 999 ML IV CONT (03:01)
--- NOTE | 2021-01-25 03:09 | PC.NURSE ---
pt assisted to wc to use restroom at her request. pt has frequent requests.
[2021-01-25] MEDS: fentaNYL CITRATE INJ (*CRX) 100 MCG/2 ML VIAL 50 MCG IV PUSH (03:30)
[2021-01-25 03:59] LABS: Reflex Lactic Acid Yes or No Add Lactic
--- NOTE | 2021-01-25 04:35 | PC.NURSE ---
pt's daughter reports that her mother has been to the er before and needs to find out why her pain is now worse. this RN told pt and daughter that she needed to call her pcp on next business morning and f/u c her pain mgmt doc if her meds were ineffective. pt's daughter also stated that's why i wanted him to admit her. because she lives far away from the rest of her family. when asked if she was concerned her mother required more care like long term placement, she denied.
== END 2021-01-25 04:41 | disposition home or self-care (01) ==
PROVIDERS: Emergency Provider Emergency Medicine; PCP Nurse Practitioner Adult Health
DX: M54.5 Low back pain (principal); G89.29 Other chronic pain; K74.60 Unspecified cirrhosis of liver; K76.6 Portal hypertension
CPT/HCPCS: 36415; 74177; 80053; 81001; 83605; 85025; 85610; 85730; 86140; 87040; 96361; 96374; 99284; J3010; J7030; Q9967

== ENCOUNTER 2021-02-11 14:25 | Outpatient (CLI) | payer MEDICARE, MEDICAID, SELFPAY ==
--- NOTE | ~2021-02-11 | MR_ITS ---
EXAMINATION: MR lumbar spine wo con DATE: 02/11/2021 15:42 INDICATION: Other spondylosis, lumbar region. TECHNIQUE: Magnetic resonance imaging (MRI) of the lumbar spine was performed without intravenous con trast. Sequences included sagittal T2-weighted FSE, coronal STIR FSE, sagittal T2-weighted FS FSE, sa gittal T1-weighted FSE, and axial T2-weighted FSE. COMPARISON: Lumbar spine MRI 01/20/2019 FINDINGS: There is 29 degrees levoscoliosis of thoracolumbar spine. There is 3 mm retrolisthesis of L 2 on L3. There is a Schmorl's node of superior endplate of L2. There is moderately decreased disc hei ght at L1-L2 and mildly decreased disc height at L2-L3, L3-L4, and L4-L5. The distal spinal cord sign al intensity is normal. The conus medullaris is at T12-L1. There is edema of the left erector spinae muscles from L3 to L5. Splenomegaly and a splenorenal portacaval shunt are noted, consistent with por fanyn venous hypertension. The following disc levels are specifically discussed: L1-L2: The disc is mildly bulging. There is severe bilateral facet joint osteoarthritis. There is mod erate right neural foraminal stenosis. There is mild central canal stenosis. L2-L3: The disc is bulging. There is severe bilateral facet joint osteoarthritis. There is moderate b ilateral neural foraminal stenosis. There is mild central canal stenosis. L3-L4: The disc is bulging. There is severe bilateral facet joint osteoarthritis. There is moderate b ilateral neural foraminal stenosis. There is mild central canal stenosis. L4-L5: The disc is bulging. There is severe bilateral facet joint osteoarthritis. There is mild right and moderate left neural foraminal stenosis. There is an epidural heterogeneous fluid collection pos terior to L4 vertebral body and the L4-L5 disc measuring 3.1 cm craniocaudal by 2.3 cm left to right by 1.1 cm anteroposterior. There is severe central canal stenosis. L5-S1: The disc is bulging and has an annular fissure. There is severe bilateral facet joint osteoart hritis. There is mild bilateral neural foraminal stenosis. There is mild central canal stenosis. IMPRESSION: 1. Epidural fluid collection at L4 with severe central canal stenosis, consistent with hematoma or le ss likely abscess. 2. Edema of the left erector spinae muscles from L3 to L5, consistent with inflammation. 3. Moderate lumbar spondylosis. 4. Thoracolumbar levoscoliosis. Reviewed, dictated and finalized at location A. IMPRESSION: 1. Epidural fluid collection at L4 with severe central canal stenosis, consiste nt with hematoma or less likely abscess. 2. Edema of the left erector spinae muscles from L3 to L5, consistent with infl ammation. 3. Moderate lumbar spondylosis. 4. Thoracolumbar levoscoliosis.
== END 2021-02-11 14:26 | disposition home or self-care (01) ==
PROVIDERS: PCP Nurse Practitioner Adult Health; Visit Provider Nurse Practitioner Adult Health
DX: M47.896 Other spondylosis, lumbar region (principal); M48.061 Spinal stenosis, lumbar region without neurogenic claudication; M79.89 Other specified soft tissue disorders; M47.816 Spondylosis without myelopathy or radiculopathy, lumbar region; M41.85 Other forms of scoliosis, thoracolumbar region
CPT/HCPCS: 72148

== ENCOUNTER 2021-09-08 16:41 | Outpatient (CLI) | payer MEDICARE, MEDICAID, SELFPAY ==
[2021-09-08 17:15] LABS: Basophils Percent Auto 0.6 % (0.2-1.2); Eosinophils Absolute Auto 0.1 K/mm3 (0-0.3); Eosinophils Percent Auto 4.3 % (0-4.4); Hematocrit 36.2 % (37.0-47.0); Hemoglobin 12.2 g/dL (12.0-15.0); Lymphocytes Absolute Auto 0.86 K/mm3 (0.9-3.2); Lymphocytes Percent Auto 26.4 % (18.3-44.2); Mean Corpuscular HGB Conc 33.7 g/dl (32-36); Mean Corpuscular Hemoglobin 35.6 pg (26-34); Mean Corpuscular Volume 105.5 fl (80-100); Mean Platelet Volume 12.8 fl (7.4-10.4); Monocytes Absolute Auto 0.4 K/mm3 (0.1-0.6); Monocytes Percent Auto 13.5 % (2.6-8.5); Neutrophils Absolute Auto 1.8 K/mm3 (1.3-6.7); Neutrophils Percent Auto 55.2 % (45.5-73.1); Platelet Count Result 84 k/mm3 (150-375); Red Blood Count 3.43 M/mm3 (4.2-5.4); Red Cell Distribution Width 14.4 % (11.5-14.5); White Blood Count 3.3 K/mm3 (4.5-10.0)
[2021-09-08 17:38] LABS: Anion Gap 1 mmol/L (8-16); Blood Urea Nitrogen 9 mg/dL (7-17); Calcium 8.3 mg/dL (8.4-10.2); Carbon Dioxide 27 mmol/L (22-30); Chloride 110 mmol/L (98-107); Cholesterol 139 mg/dL (0-200); Estimated Glomerular Filt Rate > 60; Glucose 164 mg/dL (65-110); HDL Direct 49 mg/dL; Potassium 3.6 mmol/L (3.4-5.0); Sodium 138 mmol/L (137-145); Triglycerides 118 mg/dL (<150)
[2021-09-08 17:53] LABS: Hemoglobin A1C 4.7 % (<5.7)
[2021-09-08 17:58] LABS: LDL Cholesterol Direct 40 mg/dL; Vitamin D 25 Hydroxy 48.3 ng/mL
[2021-09-08 19:07] LABS: Folic Acid > 20.0 ng/mL (2.76->20); Vitamin B12 > 1000.0 pg/mL (239-931)
== END 2021-09-08 16:42 | disposition home or self-care (01) ==
LOC: ANHLAB 16:53
PROVIDERS: PCP Nurse Practitioner Adult Health; Visit Provider Nurse Practitioner Adult Health
DX: E55.9 Vitamin D deficiency, unspecified (principal); E66.9 Obesity, unspecified; G62.9 Polyneuropathy, unspecified; E87.6 Hypokalemia
CPT/HCPCS: 36415; 80048; 80061; 82306; 82607; 82746; 83036; 85025

== ENCOUNTER 2021-09-15 16:42 | Outpatient (CLI) | payer MEDICARE, MEDICAID, SELFPAY ==
[2021-09-16 08:16] LABS: Basophils Percent Auto 0.3 % (0.2-1.2); Eosinophils Absolute Auto 0.1 K/mm3 (0-0.3); Eosinophils Percent Auto 4.3 % (0-4.4); Hematocrit 39.2 % (37.0-47.0); Hemoglobin 12.6 g/dL (12.0-15.0); Immature Granulocyte Absolute 0.01 K/mm3 (0.00-0.031); Immature Granulocyte Percent A 0.3 % (0-0.5); Immature Platelet Fraction Pct 7.5 % (0.9-11.2); Lymphocytes Absolute Auto 0.73 K/mm3 (0.9-3.2); Lymphocytes Percent Auto 22.6 % (18.3-44.2); Mean Corpuscular HGB Conc 32.1 g/dl (32-36); Mean Corpuscular Hemoglobin 35.6 pg (26-34); Mean Corpuscular Volume 110.7 fl (80-100); Mean Platelet Volume 13.2 fl (7.4-10.4); Monocytes Absolute Auto 0.5 K/mm3 (0.1-0.6); Monocytes Percent Auto 14.9 % (2.6-8.5); Neutrophils Absolute Auto 1.9 K/mm3 (1.3-6.7); Neutrophils Percent Auto 57.6 % (45.5-73.1); Platelet Count Result 68 k/mm3 (150-375); Red Blood Count 3.54 M/mm3 (4.2-5.4); Red Cell Distribution Width 14.8 % (11.5-14.5); White Blood Count 3.2 K/mm3 (4.5-10.0)
== END 2021-09-15 16:43 | disposition home or self-care (01) ==
LOC: ANHLAB 16:50
PROVIDERS: PCP Nurse Practitioner Adult Health; Visit Provider Nurse Practitioner Adult Health
DX: D72.819 Decreased white blood cell count, unspecified (principal)
CPT/HCPCS: 36415; 85025; 85055

== ENCOUNTER 2021-09-29 14:45 | Outpatient (CLI) | payer MEDICARE, MEDICAID, SELFPAY ==
--- NOTE | ~2021-09-29 | MM_ITS ---
EXAMINATION: MM screening xochilt BI w stefanie HISTORY: Screening mammogram TECHNIQUE: Craniocaudal and mediolateral oblique 3-D tomosynthesis images were obtained and synthetic 2-D images were generated. CAD analysis was submitted and interpreted. COMPARISON: 03/20/2019 diagnostic left mammogram 03/15/2019, 03/04/2018 bilateral screening mammogram examinations BREAST PARENCHYMAL COMPOSITION: The breasts are almost entirely fatty. FINDINGS: There is volume loss of the right breast as well scarring and benign amorphous calcificatio n in the posterior upper outer quadrant. Findings are consistent with postoperative change from parti al mastectomy for history of right breast cancer. Occasional benign calcifications of the breasts are noted otherwise. No malignant calcification, skin thickening or retraction or suspicious mass or new architectural distortion is noted. There is no ev idence of suspicious mass, calcification, or architectural distortion to suggest malignancy in either breast. There has been no suspicious interval change. IMPRESSION: 1. Status post right partial mastectomy for breast cancer. No mammographic evidence of malignancy. 2. Recommend routine screening mammography in one year. BI-RADS Category 2: Benign finding(s). Reviewed, dictated and finalized at location A. IMPRESSION: 1. Status post right partial mastectomy for breast cancer. No mammographic evid ence of malignancy. 2. Recommend routine screening mammography in one year. BI-RADS Category 2: Benign finding(s).
== END 2021-09-29 14:46 | disposition home or self-care (01) ==
LOC: ANHIMG 14:47
PROVIDERS: PCP Nurse Practitioner Adult Health; Visit Provider Nurse Practitioner Adult Health
DX: Z12.31 Encounter for screening mammogram for malignant neoplasm of breast (principal)
CPT/HCPCS: 77063; 77067

== ENCOUNTER 2021-11-12 14:41 | Outpatient (CLI) | payer MEDICARE, MEDICAID, SELFPAY ==
[2021-11-12 15:25] LABS: Basophils Percent Auto 0.2 % (0.2-1.2); Eosinophils Absolute Auto 0.1 K/mm3 (0-0.3); Eosinophils Percent Auto 2.3 % (0-4.4); Hematocrit 39.5 % (37.0-47.0); Hemoglobin 13.3 g/dL (12.0-15.0); Immature Granulocyte Absolute 0.01 K/mm3 (0.00-0.031); Immature Granulocyte Percent A 0.2 % (0-0.5); Immature Platelet Fraction Pct 5.8 % (0.9-11.2); Lymphocytes Absolute Auto 0.84 K/mm3 (0.9-3.2); Lymphocytes Percent Auto 17.2 % (18.3-44.2); Mean Corpuscular HGB Conc 33.7 g/dl (32-36); Mean Corpuscular Hemoglobin 34.6 pg (26-34); Mean Corpuscular Volume 102.9 fl (80-100); Monocytes Absolute Auto 0.6 K/mm3 (0.1-0.6); Monocytes Percent Auto 11.5 % (2.6-8.5); Neutrophils Absolute Auto 3.3 K/mm3 (1.3-6.7); Neutrophils Percent Auto 68.6 % (45.5-73.1); Platelet Count Result 55 k/mm3 (150-375); Red Blood Count 3.84 M/mm3 (4.2-5.4); Red Cell Distribution Width 13.8 % (11.5-14.5); White Blood Count 4.9 K/mm3 (4.5-10.0)
[2021-11-12 16:00] LABS: Iron 200 ug/dL (37-170)
[2021-11-12 16:01] LABS: Alanine Aminotransferase 40 U/L (6-35); Albumin Level 3.2 g/dL (3.5-5.1); Alkaline Phosphatase 297 U/L (38-126); Anion Gap 2 mmol/L (8-16); Aspartate Amino Transferase 91 U/L (14-36); Blood Urea Nitrogen 11 mg/dL (7-17); Calcium 8.6 mg/dL (8.4-10.2); Carbon Dioxide 27 mmol/L (22-30); Chloride 107 mmol/L (98-107); Estimated Glomerular Filt Rate > 60; Glucose 73 mg/dL (65-110); Potassium 4.1 mmol/L (3.4-5.0); Sodium 136 mmol/L (137-145)
[2021-11-12 16:10] LABS: Percent Iron Saturation 76 % (20-50)
[2021-11-28 14:29] LABS: Platelet Antibody, Direct IgG Negative
== END 2021-11-12 14:42 | disposition home or self-care (01) ==
LOC: ANHLAB 14:44
PROVIDERS: PCP Nurse Practitioner Adult Health; Visit Provider Internal Medicine Hematology & Oncology
DX: D69.49 Other primary thrombocytopenia (principal)
CPT/HCPCS: 36415; 80053; 82728; 83540; 83550; 85025; 85055; 86023

== ENCOUNTER 2021-12-23 13:48 | Outpatient (CLI) | payer MEDICARE, MEDICAID, SELFPAY ==
[2021-12-23 14:23] LABS: Basophils Percent Auto 0.3 % (0.2-1.2); Eosinophils Absolute Auto 0.1 K/mm3 (0-0.3); Eosinophils Percent Auto 3.8 % (0-4.4); Hematocrit 34.1 % (37.0-47.0); Hemoglobin 11.6 g/dL (12.0-15.0); Immature Granulocyte Absolute 0.01 K/mm3 (0.00-0.031); Immature Granulocyte Percent A 0.3 % (0-0.5); Lymphocytes Absolute Auto 0.78 K/mm3 (0.9-3.2); Lymphocytes Percent Auto 22.8 % (18.3-44.2); Mean Platelet Volume 11.5 fl (7.4-10.4); Monocytes Absolute Auto 0.4 K/mm3 (0.1-0.6); Neutrophils Absolute Auto 2.1 K/mm3 (1.3-6.7); Neutrophils Percent Auto 60.8 % (45.5-73.1); Platelet Count Result 73 k/mm3 (150-375); Red Blood Count 3.31 M/mm3 (4.2-5.4); Red Cell Distribution Width 14.5 % (11.5-14.5); White Blood Count 3.4 K/mm3 (4.5-10.0)
[2021-12-23 16:22] LABS: Iron 183 ug/dL (37-170)
[2021-12-23 16:24] LABS: Alanine Aminotransferase 33 U/L (6-35); Albumin Level 2.7 g/dL (3.5-5.1); Alkaline Phosphatase 270 U/L (38-126); Anion Gap 1 mmol/L (8-16); Aspartate Amino Transferase 76 U/L (14-36); Bilirubin,Total 2.7 mg/dL (0.2-1.3); Blood Urea Nitrogen 12 mg/dL (7-17); Calcium 8.2 mg/dL (8.4-10.2); Carbon Dioxide 30 mmol/L (22-30); Chloride 109 mmol/L (98-107); Estimated Glomerular Filt Rate > 60; Glucose 116 mg/dL (65-110); Potassium 4.1 mmol/L (3.4-5.0); Sodium 140 mmol/L (137-145)
[2021-12-23 16:32] LABS: Percent Iron Saturation 78 % (20-50)
[2021-12-26 12:39] LABS: Vitamin B12 > 1000.0 pg/mL (239-931)
[2021-12-29 10:23] LABS: Platelet Antibody, Direct IgG Negative
== END 2021-12-23 13:49 | disposition home or self-care (01) ==
PROVIDERS: PCP Nurse Practitioner Adult Health; Visit Provider Internal Medicine Hematology & Oncology
DX: D69.49 Other primary thrombocytopenia (principal); E83.19 Other disorders of iron metabolism
CPT/HCPCS: 36415; 80053; 81256; 82607; 82728; 82746; 83540; 83550; 85025; 86023

== ENCOUNTER 2022-01-06 14:14 | Outpatient (CLI) | payer MEDICARE, SELFPAY ==
[2022-01-06 16:25] LABS: INR 1.4; Prothrombin Time 16.2 Seconds (11.1-14.7)
[2022-01-06 18:13] LABS: Hepatitis B Surface Antigen Negative (Negative)
[2022-01-06 18:19] LABS: HAV RESULT Negative (Negative); Hepatitis B Core IgM Result Negative (Negative)
[2022-01-06 18:31] LABS: Hepatitis B Surface Anti Res Negative; Hepatitis C Virus Antibody Negative (Negative)
== END 2022-01-06 14:15 | disposition home or self-care (01) ==
PROVIDERS: PCP Nurse Practitioner Adult Health; Visit Provider Nurse Practitioner Family
DX: K74.60 Unspecified cirrhosis of liver (principal)
CPT/HCPCS: 36415; 80074; 81256; 81596; 82104; 82390; 82977; 85610; 86706

== ENCOUNTER 2022-01-13 10:12 | Outpatient (CLI) | payer MEDICARE, MEDICAID, SELFPAY | END 2022-01-13 10:13 | disposition home or self-care (01) | PROVIDERS: PCP Nurse Practitioner Adult Health; Visit Provider Nurse Practitioner Family | DX: K74.60 Unspecified cirrhosis of liver (principal) | CPT/HCPCS: 36415; 81256; 81596; 82104; 82390; 82977; 83516; 86038; 86376 ==

== ENCOUNTER 2022-02-02 11:00 | Outpatient (RCR) | payer MEDICARE, MEDICAID, SELFPAY ==
--- NOTE | 2022-01-13 11:22 | PTOPEVAL ---
PHYSICAL THERAPY EVALUATION AND PLAN OF CARE 01-13-22 Thank you for referring Melanie Buckner to [facility].? Melanie is scheduled to be seen for therapy? 3 x/week for 6 weeks. Please review, sign, date and return this plan of care MATT. I agree with and certify that the following plan of care is medically necessary. Referring Physician Date Attending Provider: Anayeli Sibley NP Past Medical History Source of Past Medical History Patient Neurological History Hx Neurological Disorders No Significant History Cardiovascular History Hx Cardiac Disorders No Significant History Respiratory History Hx COVID-19 Yes: 2020- mild symptoms Gastrointestinal History Hx Cholecystectomy Yes Hx Cirrhosis Yes Hx Other Gastrointestinal Disorders Yes: new referral gastrointerologist- liver issues and low blood count; Musculoskeletal History Hx Arthritis Yes: all joints have arthritis Hx Back Injury Yes Hx Back Pain Yes: chronic Hx Degenerative Disk Disease Yes Hx Scoliosis Yes Hx Spinal Surgery Yes Hx Other Musculoskeletal Disorders Yes: lumbar spinal stenosis; lumbar nerve ablation L 3-4-5; Endocrine History Hx Endocrine Disorders No Significant History Integumentary History Hx Eczema Yes Other History Hx Cancer Yes: breast- lumpectomy Hx Chemotherapy Yes Hx Radiation Therapy Yes Hx Other Medical Conditions Yes: obesity 291#; low blood count since cancer treatments Evaluation Information Diagnosis B LE lymphedema Onset Jul 2021 Prior Level of Function Activity Level (Last 3 Months) Occupation not working outside home-- medical disability Home Setting Home Type House,Multiple Levels Environmental Barriers Railing, Bilateral,Stairs, Greater than 4 Living Situation Alone Mobility Assistive Devices (Used Last 3 Cane,Walker, Rollator Months) Comments Additional Prior Level of Function have nursing admin 2-3 x/wk for Comments home tasks, errands; get meals on wheels indep with bathing, dressing; report home activity tolerance 10-15 min standing tasks; use cane in community and wheeled walker/rollator in home; 5 entry steps into home, with B rails, str
--- NOTE | 2022-01-13 11:42 | PCPTNOTE ---
pt signed consent for [facility] [facility] for home intermittent pump--her info faxed to them. She was issued brochure and local rep card for [employer].
--- NOTE | 2022-01-13 11:43 | PCPTNOTE ---
pt signed a consent and photos were taken of her legs and in EMR under notes.
--- NOTE | 2022-02-04 09:30 | PCPTNOTE ---
Patient called & cancelled scheduled appointment this date due to back pain.
--- NOTE | 2022-02-04 13:53 | PCPTNOTE ---
PHYSICAL THERAPY DISCHARGE REPORT 02-04-22 Attending Provider: Anayeli Sibley NP Patient:Melanie Buckner Date of :1960 Melanie has received the PT evaluation and one treatment session for the diagnosis of lymphedema. She called today and stated she is having more back pain and the lymphedema wraps increase her back pain. She wants to complete pain management for her back pain and stop the PT treatments for now. Therefore she will be discharged at this time. Thank you for referring this patient to [facility]. Please review, sign, date and return this discharge summary MATT. I have been updated about the patient's current status and I agree with discharge from the above service at this time. Referring Physician Date
== END 2022-02-05 09:36 | disposition home or self-care (01) ==
LOC: ANHPT 11:00
PROVIDERS: PCP Nurse Practitioner Adult Health; Visit Provider Nurse Practitioner Adult Health
DX: I89.0 Lymphedema, not elsewhere classified (principal)
CPT/HCPCS: 29581; 97140; 97162

== ENCOUNTER 2022-02-04 20:05 | Emergency (ER) | payer MEDICARE, MEDICAID, SELFPAY ==
[2022-02-04 20:14] VITALS: BP 153/81; PULSE 88; RESP 19; TEMP 37.1; O2SAT 100
--- NOTE | 2022-02-04 22:27 | ED.EXTPRO ---
HPI - Extremity Problem General Chief complaint: Extremity Problem,Nontraumatic Stated complaint: severe back pain (chronic), cellulitis rt arm, fev Time Seen by Provider: 02/04/22 21:28 History of Present Illness HPI Narrative: Patient is a 61-year-old female with a history of lymphedema here for evaluation of right upper extremity swelling, redness and pain over the past several days. She notes that she has a history of cellulitis on her lower extremities, and states this feels similar. She denies any known trauma to the skin, although she does have a history of eczema. Denies history of MRSA. Additionally notes some acute on chronic back pain, this pain has been there for years but has become severe over past several days. Pain is located in her bilateral low back and also radiates into her hips, denies any incontinence or retention of bowel or bladder or saddle anesthesia. She notes that she will not stay in the hospital tonight as she has a diabetic dog at home that requires her attention around the clock. Related Data Home Medications Medication Instructions Recorded Confirmed celecoxib 100 mg capsule mg 01/24/21 01/06/22 duloxetine 60 mg capsule,delayed mg PO 01/24/21 01/06/22 release ergocalciferol (vitamin D2) 1,250 01/24/21 01/06/22 mcg (50,000 unit) capsule potassium chloride 10 mEq meq PO 01/24/21 01/06/22 tablet,extended release tizanidine 4 mg tablet mg 01/24/21 01/06/22 Allergies Allergy/AdvReac Type Severity Reaction Status Date / Time Penicillins Allergy Unknown Rash Verified 01/06/22 13:13 morphine AdvReac Vomiting Verified 01/06/22 13:13 tramadol AdvReac Other Verified 02/04/22 20:22 Review of Systems Review of Systems: Gen: Denies fevers or chills Eyes: Denies eye pain or visual change ENT: Denies congestion Respiratory: Denies shortness of breath or cough CV: Denies chest pain or palpitations GI: Denies abdominal pain nausea, emesis or diarrhea : denies burning, urgency, frequency or hematuria Musculoskeletal: Denies back pain or muscle pain Neuro: Denies numbness, tingling, weakness or focal weakness Skin: Denies rash Except as documented, all other systems reviewed and negative [facility] Past Medical History Medical History (Updated 02/04/22 @ 22:52 by Danna Watkins PA-C) Hepatic cirrhosis History of chronic back pain Obese Thrombocytosis Social History Social History Smoking status: Never smoker Second hand tobacco smoke exposure: No Alcohol intake: current Substance use: never Gender identity (if verbalized by the patient): Female Exam Narrative: APPEARANCE: Well appearing, no pain in distress, well-nourished. Head: Normocephalic and atraumatic. EYES: PERRLA/EOMI, conjunctivae clear NOSE: No nasal drainage EARS: External ear normal in appearance THROAT: Oropharynx is clear. Mucous membranes are moist. NECK: Supple. No adenopathy, no masses. RESPIRATORY: Airway patent, respirations nonlabored. Clear to auscultation bilaterally, no rales, rhonchi, wheezing. CARDIOVASCULAR: Regular rate and rhythm without murmurs, rubs, or gallops. ABDOMINAL: Normoactive bowel sounds. Soft, nontender, nondistended. No rebound tenderness or guarding. MUSCULOSKELETAL: Thickened skin, marked pitting edema to bilateral lower extremities. Right upper extremity with nonpitting edema. No midline tenderness along C, T or L-spine. striaght leg raise negative bilaterally. NEURO: Normal speech. No focal neurologic deficits. SKIN: Right upper extremity with warmth, swelling, and erythema extending from the wrist up to the shoulder. Right breast is diffusely erythematous. Skin is lichenified diffusely, numerous patches of scaly skin present over her right upper extremity underlying the erythema. PSYCHIATRIC: Normal affect/mood. Course Vital Signs Vital signs: Vital Signs Temperature 98.8 F 02/04/22 20:14 Pulse Rate
[2022-02-04 22:28] LABS: Basophils Percent Auto 0.3 % (0.2-1.2); Eosinophils Percent Auto 0.4 % (0-4.4); Hematocrit 34.8 % (37.0-47.0); Hemoglobin 11.8 g/dL (12.0-15.0); Immature Granulocyte Absolute 0.03 K/mm3 (0.00-0.031); Immature Granulocyte Percent A 0.4 % (0-0.5); Immature Platelet Fraction Pct 4.5 % (0.9-11.2); Lymphocytes Absolute Auto 0.71 K/mm3 (0.9-3.2); Lymphocytes Percent Auto 10.4 % (18.3-44.2); Mean Corpuscular HGB Conc 33.9 g/dl (32-36); Mean Corpuscular Hemoglobin 35.2 pg (26-34); Mean Corpuscular Volume 103.9 fl (80-100); Mean Platelet Volume 12.3 fl (7.4-10.4); Monocytes Absolute Auto 0.6 K/mm3 (0.1-0.6); Monocytes Percent Auto 8.1 % (2.6-8.5); Neutrophils Absolute Auto 5.5 K/mm3 (1.3-6.7); Neutrophils Percent Auto 80.4 % (45.5-73.1); Platelet Count Result 54 k/mm3 (150-375); Red Blood Count 3.35 M/mm3 (4.2-5.4); Red Cell Distribution Width 14.6 % (11.5-14.5); White Blood Count 6.8 K/mm3 (4.5-10.0)
[2022-02-04 22:37] LABS: Alanine Aminotransferase 31 U/L (6-35); Albumin Level 2.7 g/dL (3.5-5.1); Alkaline Phosphatase 217 U/L (38-126); Anion Gap 6 mmol/L (8-16); Aspartate Amino Transferase 73 U/L (14-36); Bilirubin,Total 4.4 mg/dL (0.2-1.3); Blood Urea Nitrogen 13 mg/dL (7-17); Calcium 8.6 mg/dL (8.4-10.2); Carbon Dioxide 25 mmol/L (22-30); Chloride 105 mmol/L (98-107); Estimated CRCL calculation 115 ml/min; Estimated Glomerular Filt Rate > 60; Glucose 91 mg/dL (65-110); Lactic Acid Reflex 1.6 mmol/L (0.7-2.0); Potassium 3.8 mmol/L (3.4-5.0); Sodium 136 mmol/L (137-145)
[2022-02-05] MEDS: KETOROLAC 30 MG/ML VIAL (*BKC) IM (00:40)
[2022-02-05] MEDS: CEPHALEXIN 500 MG CAPSULE PO (00:41)
[2022-02-05 01:20] VITALS: BP 161/85; PULSE 87; RESP 18; O2SAT 100
== END 2022-02-05 01:22 | disposition left against medical advice (07) ==
PROVIDERS: Physician Assistant; Emergency Provider Emergency Medicine; PCP Nurse Practitioner Adult Health
DX: L03.113 Cellulitis of right upper limb (principal); I89.0 Lymphedema, not elsewhere classified; K74.60 Unspecified cirrhosis of liver; E66.9 Obesity, unspecified; Z68.42 Body mass index [BMI] 45.0-49.9, adult
CPT/HCPCS: 36415; 80053; 83605; 85025; 85055; 96372; 99283; A9270; J1885

== ENCOUNTER 2022-03-12 13:50 | Outpatient (CLI) | payer MEDICARE, MEDICAID, SELFPAY ==
--- NOTE | ~2022-03-12 | MR_ITS ---
EXAMINATION: MR lumbar spine wo con DATE: 03/12/2022 14:35 INDICATION: Lumbar radicular pain. TECHNIQUE: Magnetic resonance imaging (MRI) of the lumbar spine was performed without intravenous con trast. Sequences included sagittal T2-weighted FSE, sagittal T2-weighted FS FSE, sagittal T1-weighted FSE, and axial T2-weighted FSE. COMPARISON: Lumbar spine MRI 02/11/2021 FINDINGS: There is 30 degrees levoscoliosis of thoracolumbar spine. There is 3 mm retrolisthesis of L 2 on L3 and 3 mm anterolisthesis of L4 on L5. Vertebral body heights are normal. There is severely de creased disc height at L1 and mildly decreased disc height from L2-L3 through L4-L5 with endplate rem odeling. The distal spinal cord signal intensity is normal. The conus medullaris is at T12-L1. The fo llowing disc levels are specifically discussed: L1-L2: The disc is bulging the disc is bulging. There is severe right and moderate left facet joint o steoarthritis. There is moderate right neural foraminal stenosis. There is mild central canal stenosi s. L2-L3: The disc is bulging. There is severe bilateral facet joint osteoarthritis. There is moderate b ilateral neural foraminal stenosis. There is mild central canal stenosis. L3-L4: The disc is bulging and has an annular fissure. There is severe bilateral facet joint osteoart hritis. There is mild right and moderate left neural foraminal stenosis. There is mild central canal stenosis. L4-L5: The disc is bulging. There is severe bilateral facet joint osteoarthritis. There is mild bilat eral neural foraminal stenosis. There is mild central canal stenosis. L5-S1: The disc is bulging. There is severe bilateral facet joint osteoarthritis. There is mild bilat eral neural foraminal stenosis. There is mild central canal stenosis. IMPRESSION: 1. Severe lumbar spondylosis, worsened from 02/11/2021. 2. Thoracolumbar levoscoliosis. Reviewed, dictated and finalized at location A.
== END 2022-03-12 13:51 | disposition home or self-care (01) ==
PROVIDERS: PCP Nurse Practitioner Adult Health; Visit Provider Nurse Practitioner Family
DX: M47.26 Other spondylosis with radiculopathy, lumbar region (principal)
CPT/HCPCS: 72148

== ENCOUNTER 2022-05-12 15:38 | Outpatient (CLI) | payer MEDICARE, MEDICAID, SELFPAY ==
[2022-05-12 16:04] LABS: Basophils Percent Auto 0.4 % (0.2-1.2); Eosinophils Percent Auto 1.7 % (0-4.4); Hematocrit 33.2 % (37.0-47.0); Hemoglobin 11.4 g/dL (12.0-15.0); Immature Granulocyte Absolute 0.02 K/mm3 (0.00-0.031); Immature Granulocyte Percent A 0.9 % (0-0.5); Immature Platelet Fraction Pct 5.7 % (0.9-11.2); Lymphocytes Absolute Auto 0.43 K/mm3 (0.9-3.2); Lymphocytes Percent Auto 18.6 % (18.3-44.2); Mean Corpuscular HGB Conc 34.3 g/dl (32-36); Mean Corpuscular Hemoglobin 35.3 pg (26-34); Mean Corpuscular Volume 102.8 fl (80-100); Monocytes Absolute Auto 0.1 K/mm3 (0.1-0.6); Monocytes Percent Auto 6.1 % (2.6-8.5); Neutrophils Absolute Auto 1.7 K/mm3 (1.3-6.7); Neutrophils Percent Auto 72.3 % (45.5-73.1); Platelet Count Result 63 k/mm3 (150-375); Red Blood Count 3.23 M/mm3 (4.2-5.4); Red Cell Distribution Width 13.8 % (11.5-14.5); White Blood Count 2.3 K/mm3 (4.5-10.0)
[2022-05-12 16:51] LABS: Iron 163 ug/dL (37-170)
[2022-05-12 16:57] LABS: Alanine Aminotransferase 32 U/L (6-35); Albumin Level 2.6 g/dL (3.5-5.1); Alkaline Phosphatase 275 U/L (38-126); Anion Gap 5 mmol/L (8-16); Aspartate Amino Transferase 87 U/L (14-36); Bilirubin,Total 2.5 mg/dL (0.2-1.3); Blood Urea Nitrogen 9 mg/dL (7-17); Calcium 8.1 mg/dL (8.4-10.2); Carbon Dioxide 25 mmol/L (22-30); Chloride 105 mmol/L (98-107); Estimated Glomerular Filt Rate > 60; Glucose 137 mg/dL (65-110); Sodium 135 mmol/L (137-145)
[2022-05-12 17:00] LABS: Percent Iron Saturation 68 % (20-50)
[2022-05-12 18:56] LABS: Folic Acid 12.3 ng/mL (2.76->20)
== END 2022-05-12 15:39 | disposition home or self-care (01) ==
LOC: ANHLAB 15:40
PROVIDERS: PCP Nurse Practitioner Adult Health; Visit Provider Internal Medicine Hematology & Oncology
DX: E83.19 Other disorders of iron metabolism (principal); D69.49 Other primary thrombocytopenia
CPT/HCPCS: 36415; 80053; 82607; 82728; 82746; 83540; 83550; 85025; 85055

== ENCOUNTER 2022-05-27 13:16 | Outpatient (CLI) | payer MEDICARE, MEDICAID, SELFPAY ==
--- NOTE | ~2022-05-27 | US_ITS ---
EXAMINATION: US pelvic complete w TV DATE: 05/27/2022 14:51 INDICATION: N95.0 - Postmenopausal bleeding TECHNIQUE: Multiple transabdominal and endovaginal sonographic images of the pelvis were obtained. COMPARISON: 03/25/2018, CT abdomen and pelvis 01/25/2021. FINDINGS: Uterus: 10.2 x 5.4 x 6.4 cm. 3.6 cm subserosal fibroid. Endometrial complex measures 24 mm. Right Ovary: 3.1 x 1.5 x 1.2 cm. Normal ovarian size and appearance. Difficulty obtaining color flow, minimal flow is present, likely limited by technical factors. Left Ovary: 2.1 x 1.5 x 1.8 cm. Vascular flow is present. There is small volume free fluid in the pelvis. IMPRESSION: 1. Postmenopausal endometrial thickening which may be due to hyperplasia, polyp, or malignancy. Consi dusty endometrial sampling. 2. 3.6 cm subserosal fibroid. 3. Technically limited evaluation of right ovarian flow, of doubtful clinical significance unless acc ompanied by clinical findings of torsion. Reviewed, dictated and finalized at location K. [place] IMPRESSION: 1. Postmenopausal endometrial thickening which may be due to hyperplasia, polyp , or malignancy. Consider endometrial sampling. 2. 3.6 cm subserosal fibroid. 3. Technically limited evaluation of right ovarian flow, of doubtful clinical s ignificance unless accompanied by clinical findings of torsion.
== END 2022-05-27 13:17 | disposition home or self-care (01) ==
LOC: ANHIMG 13:17
PROVIDERS: PCP Nurse Practitioner Adult Health; Visit Provider Obstetrics & Gynecology
DX: N95.0 Postmenopausal bleeding (principal); R93.89 Abnormal findings on diagnostic imaging of other specified body structures; D25.2 Subserosal leiomyoma of uterus
CPT/HCPCS: 76830; 76856

== ENCOUNTER 2022-07-14 15:02 | Outpatient (CLI) | payer MEDICARE, MEDICAID, SELFPAY ==
[2022-07-14 15:24] LABS: Basophils Percent Auto 0.3 % (0.2-1.2); Eosinophils Absolute Auto 0.1 K/mm3 (0-0.3); Eosinophils Percent Auto 3.2 % (0-4.4); Hematocrit 36.2 % (37.0-47.0); Hemoglobin 11.9 g/dL (12.0-15.0); Immature Granulocyte Absolute 0.01 K/mm3 (0.00-0.031); Immature Granulocyte Percent A 0.3 % (0-0.5); Immature Platelet Fraction Pct 3.1 % (0.9-11.2); Lymphocytes Absolute Auto 1.18 K/mm3 (0.9-3.2); Lymphocytes Percent Auto 31.8 % (18.3-44.2); Mean Corpuscular HGB Conc 32.9 g/dl (32-36); Mean Corpuscular Hemoglobin 33.1 pg (26-34); Mean Corpuscular Volume 100.8 fl (80-100); Monocytes Absolute Auto 0.5 K/mm3 (0.1-0.6); Monocytes Percent Auto 14.6 % (2.6-8.5); Neutrophils Absolute Auto 1.9 K/mm3 (1.3-6.7); Neutrophils Percent Auto 49.8 % (45.5-73.1); Platelet Count Result 88 k/mm3 (150-375); Red Blood Count 3.59 M/mm3 (4.2-5.4); Red Cell Distribution Width 15.3 % (11.5-14.5); White Blood Count 3.7 K/mm3 (4.5-10.0)
== END 2022-07-14 15:03 | disposition home or self-care (01) ==
LOC: ANHLAB 15:05
PROVIDERS: PCP Nurse Practitioner Adult Health; Visit Provider Obstetrics & Gynecology
DX: N95.1 Menopausal and female climacteric states (principal); N93.9 Abnormal uterine and vaginal bleeding, unspecified
CPT/HCPCS: 36415; 83001; 85025; 85055

== ENCOUNTER 2022-07-29 13:59 | Outpatient (RCR) | payer MEDICARE, MEDICAID, SELFPAY ==
--- NOTE | 2022-07-29 15:10 | PTOPEVAL1 ---
Assessment and note entered by Mimi Garcia, PT, CLT Evaluation Information Assessment Status Evaluation Diagnosis lymphedema R and L LE Onset November 2021 Reported Pain Level Pain Score Self Report Additional Pain Score Comments intermittent pain in legs,with more swelling in legs, calves tender and hurt 3/10; has chronic back pain--following with pain management for back pain; Assessment PT Clinical Summary Melanie has the diagnosis of R and L LE lymphedema. She reports that she is in the process of obtaining a home intermittent compression pump and needs measurements for her legs. She has had recent [facility] nursing with assist for her legs. With the evaluation she has skin changes with fibrotic tissue and medial thigh lobules, with edema over the dorsum of her feet and eczema over knees and thighs. She would benefit from a home intermittent compression pump for assisting in managing her chronic condition. She would benefit from a trunk component due to enlarged abdomen, and to facilitate the lymph flow from her legs. Discussed treatment options with pt for lymphedema care; recommended multi layer compression wraps and treatment for her legs; she is undecided about treatment at this time due to time requirements and costs for the compression garments; She is going to think about continued treatments for her legs and will be back in contact with any further questions and if she wants to have treatment or not. Will keep her chart open for 4 weeks, for her to decide about treatment or not. Plan of Care Interventions Lymphedema Compression Pump,Manual Lymph Drainage, Patient/Caregiver Educati,Therapeutic Exercise PT Services Indicated Yes Treatment Frequency and 0-3x/wk for 4 weeks- pt to decide if she wants treatment Duration These treatments will address the objective and functional deficits as defined above. The patient will be advanced safely and appropriately in order for the patient to progress towards his/her prior level of function. Additional exercises will be introduced and as well as a comprehensive home exercise program upon discharge, if needed, ?to ensure carryover of functional gains achieved in the clinic. This treatment plan has been reviewed and agreement upon by the patient.
--- NOTE | 2022-08-20 11:44 | PCPTNOTE ---
PHYSICAL THERAPY DISCHARGE 08-20-22 Attending Provider: Marcia Parra [facility] Patient:Melanie Buckner Date of :1960 Ms. Buckner has not returned for any further treatments since the initial PT evaluation on 07/29/2022, therefore she will be discharged at this time. The goals were not addressed. Thank you for referring Melanie to [facility].
== END 2022-10-12 09:53 | disposition home or self-care (01) ==
LOC: ANHPT 13:59
PROVIDERS: PCP Nurse Practitioner Adult Health; Visit Provider Nurse Practitioner Family
DX: I89.0 Lymphedema, not elsewhere classified (principal)
CPT/HCPCS: 97161

== ENCOUNTER 2022-10-26 19:01 | Emergency (ER) | payer MEDICARE, MEDICAID, SELFPAY ==
[2022-10-26 19:18] VITALS: BP 154/87; PULSE 87; RESP 18; TEMP 36.9; O2SAT 100
--- NOTE | 2022-10-26 20:52 | ED.EAR ---
HPI - Ear Problem General Chief complaint: Ear Stated complaint: ear pain Time Seen by Provider: 10/26/22 20:20 History of Present Illness HPI Narrative: Patient is a 61-year-old female presenting with right ear pain. Patient states that she has had intermittent severe right ear pain for the last 6 to 7 months. States that she has seen ENT who has diagnosed her with eczema of her ear canals. States that this is what her pain has been attributed to. States that they gave her cream which only seem to minimally help. Patient states that she has had persistent right ear pain today. She called her ENT but they were unable to get her in. She denies changes in hearing or drainage from the ear. Denies recent fevers or chills. Denies dental pain or swelling. Denies further complaints. Related Data Home Medications Medication Instructions Recorded Confirmed ergocalciferol (vitamin D2) 1,250 50,000 unit PO WEEKLY 01/24/21 05/24/22 mcg (50,000 unit) capsule potassium chloride 10 mEq 10 meq PO DAILY 01/24/21 05/24/22 tablet,extended release tizanidine 4 mg tablet 4 mg PO HS 01/24/21 05/24/22 baclofen 20 mg tablet 20 mg PO BID 03/10/22 05/24/22 ascorbic acid (vitamin C) 500 mg 500 mg PO DAILY 03/30/22 05/24/22 tablet tramadol 50 mg tablet 50 mg PO Q6H PRN 05/20/22 05/24/22 Allergies Allergy/AdvReac Type Severity Reaction Status Date / Time Penicillins Allergy Mild Rash Verified 10/26/22 19:26 morphine AdvReac Intermediate Vomiting Verified 10/26/22 19:26 tramadol AdvReac Mild Other Verified 10/26/22 19:26 Review of Systems Review of Systems: All systems reviewed & are unremarkable except as noted in HPI and below PMFSH Past Medical History Medical History Anemia Arthritis Cellulitis Elevated liver function tests Hepatic cirrhosis History of chronic back pain History of gonorrhea 1978 Obese Splenomegaly Thrombocytosis Surgical History Surgical History H/O tubal ligation History of cholecystectomy History of dilatation and curettage S/P breast lumpectomy [place] teeth removed Social History Social History Smoking packs per day: 1 Smoking cigarettes per day: 20.0 Years smoked: 6 Smoking pack-years: 6.00 Smoking status: Former smoker Tobacco type: cigarettes Second hand tobacco smoke exposure: No Alcohol intake: current Alcohol use details: twice a year Substance use: never Substance use type: does not use Living arrangements: alone Gender identity (if verbalized by the patient): Female Spiritual care concerns: No Exam Narrative: GENERAL: Well-appearing, well-nourished, and in no acute distress. HEAD: Normocephalic, atraumatic. EYES: PERRLA and EOMI. ENT: Nares clear, no rhinorrhea or epistaxis. Mucous membranes moist. R ear canal with large amount of cerumen, mildly erythematous, it was irrigated and TM appears pearly da silva, no effusions or erythema NECK: Supple. CHEST: Clear to auscultation. No respiratory distress. HEART: Regular rate and rhythm ABDOMEN: Soft, nontender, nondistended EXTREMITIES: Normal range of motion. No edema. SKIN: Warm, dry. +eczema bilateral upper extremities NEURO: No focal deficits. Alert and oriented x3. PSYCH: Normal mood and affect. Course Vital Signs Vital signs: Vital Signs Temperature 98.5 F 10/26/22 19:18 Pulse Rate 87 10/26/22 19:18 Respiratory Rate 18 10/26/22 19:18 Blood Pressure 154/87 H 10/26/22 19:18 Pulse Oximetry 100 10/26/22 19:18 Oxygen Delivery Room Air 10/26/22 19:18 Temperature 98.5 F 10/26/22 19:18 Pulse Rate 87 10/26/22 22:33 Respiratory Rate 18 10/26/22 22:33 Blood Pressure 151/89 H 10/26/22 22:33 Pulse Oximetry 98 10/26/22 22:33 Oxygen Delivery Room Air 10/26/22 19:18 Procedures Ear Wax
[2022-10-26] MEDS: DEXAMETHASONE 2 MG TABLET 6 MG PO (21:51)
[2022-10-26] MEDS: CARBAMIDE PEROXIDE 6.5% OT SOLN 15 ML BTL 5 DROP LEFT EAR (21:52)
[2022-10-26 22:33] VITALS: BP 151/89; PULSE 87; RESP 18; O2SAT 98
== END 2022-10-26 22:34 | disposition home or self-care (01) ==
PROVIDERS: Emergency Provider Emergency Medicine; PCP Nurse Practitioner Family
DX: H92.01 Otalgia, right ear (principal); H61.21 Impacted cerumen, right ear; D64.9 Anemia, unspecified; M19.90 Unspecified osteoarthritis, unspecified site
CPT/HCPCS: 99283; A9270; J8540

== ENCOUNTER 2022-12-24 12:21 | Outpatient (CLI) | payer MEDICARE, MEDICAID, SELFPAY ==
--- NOTE | ~2022-12-24 | MM_ITS ---
EXAMINATION: MM screening xochilt BI w stefanie HISTORY: Screening mammogram, history of right breast cancer TECHNIQUE: Craniocaudal and mediolateral oblique 3-D tomosynthesis images were obtained and synthetic 2-D images were generated. CAD analysis was submitted and interpreted. COMPARISON: 09/29/2021, 03/20/2019, 03/15/2019, 03/04/2018 BREAST PARENCHYMAL COMPOSITION: There are scattered areas of fibroglandular density. FINDINGS: No suspicious mass, calcification, or architectural distortion are identified in either joni ast to suggest malignancy. There has been no suspicious interval change. IMPRESSION: 1. No mammographic evidence of malignancy. 2. Recommend routine screening mammography in one year. BI-RADS Category 1: Negative Reviewed, dictated and finalized at location A.
== END 2022-12-24 12:22 | disposition home or self-care (01) ==
LOC: CHSIMG 12:24
PROVIDERS: PCP Nurse Practitioner Family; Visit Provider Obstetrics & Gynecology
DX: Z12.31 Encounter for screening mammogram for malignant neoplasm of breast (principal)
CPT/HCPCS: 77063; 77067

== ENCOUNTER 2022-12-24 14:37 | Outpatient (CLI) | payer MEDICARE, MEDICAID, SELFPAY ==
[2022-12-24 15:04] LABS: Basophils Percent Auto 0.3 % (0.2-1.2); Eosinophils Absolute Auto 0.1 K/mm3 (0-0.3); Eosinophils Percent Auto 4.5 % (0-4.4); Hematocrit 31.9 % (37.0-47.0); Hemoglobin 10.9 g/dL (12.0-15.0); Immature Platelet Fraction Pct 6.2 % (0.9-11.2); Lymphocytes Absolute Auto 0.84 K/mm3 (0.9-3.2); Lymphocytes Percent Auto 26.8 % (18.3-44.2); Mean Corpuscular HGB Conc 34.2 g/dl (32-36); Mean Corpuscular Hemoglobin 35.6 pg (26-34); Mean Corpuscular Volume 104.2 fl (80-100); Monocytes Absolute Auto 0.4 K/mm3 (0.1-0.6); Monocytes Percent Auto 12.5 % (2.6-8.5); Neutrophils Absolute Auto 1.8 K/mm3 (1.3-6.7); Neutrophils Percent Auto 55.9 % (45.5-73.1); Platelet Count Result 52 k/mm3 (150-375); Red Blood Count 3.06 M/mm3 (4.2-5.4); Red Cell Distribution Width 14.9 % (11.5-14.5); White Blood Count 3.1 K/mm3 (4.5-10.0)
[2022-12-24 15:05] LABS: Anisocytosis 1+ (NORMAL); Ovalocytes 1+ (NORMAL); Platelet Estimate Decreased (Adequate); Schistocytes None Seen (NORMAL)
[2022-12-24 15:07] LABS: Helmet Cells 1+ (NORMAL)
[2022-12-24 15:08] LABS: Poikilocytosis 2+ (NORMAL)
[2022-12-24 15:44] LABS: Iron 179 ug/dL (37-170)
[2022-12-24 15:48] LABS: Alanine Aminotransferase 26 U/L (6-35); Albumin Level 2.5 g/dL (3.5-5.1); Alkaline Phosphatase 197 U/L (38-126); Anion Gap 0 mmol/L (8-16); Aspartate Amino Transferase 72 U/L (14-36); Bilirubin,Total 3.8 mg/dL (0.2-1.3); Blood Urea Nitrogen 12 mg/dL (7-17); Carbon Dioxide 28 mmol/L (22-30); Chloride 110 mmol/L (98-107); Estimated Glomerular Filt Rate > 60; Glucose 117 mg/dL (65-110); Potassium 3.8 mmol/L (3.4-5.0); Sodium 138 mmol/L (137-145)
[2022-12-24 15:53] LABS: Percent Iron Saturation 69 % (20-50)
[2022-12-24 16:51] LABS: Folic Acid 14.9 ng/mL (2.76->20)
== END 2022-12-24 14:38 | disposition home or self-care (01) ==
LOC: ANHLAB 14:40
PROVIDERS: PCP Nurse Practitioner Family; Visit Provider Internal Medicine Hematology & Oncology
DX: D69.59 Other secondary thrombocytopenia (principal); E83.19 Other disorders of iron metabolism
CPT/HCPCS: 36415; 80053; 82607; 82728; 82746; 83540; 83550; 85025; 85055

== ENCOUNTER 2023-01-22 13:10 | Outpatient (CLI) | payer MEDICARE, MEDICAID, SELFPAY ==
--- NOTE | 2023-01-22 13:25 | ECG_ITS ---
Measurements Intervals [place] Rate: 82 P: -1 MT: 133 QRS: 11 QRSD: 93 T: 6 QT: 396 QTc: 464 Interpretive Statements SINUS RHYTHM COMPARED TO ECG 08/19/2018 07:16:59 NO SIGNIFICANT CHANGES Electronically Signed On 01-23-2023 8:47:19 CDT by Ruby Regalado M.D.
[2023-01-22 14:08] LABS: Hematocrit 34.3 % (37.0-47.0); Hemoglobin 11.4 g/dL (12.0-15.0); Immature Platelet Fraction Pct 10.8 % (0.9-11.2); Mean Corpuscular HGB Conc 33.2 g/dl (32-36); Mean Corpuscular Volume 105.2 fl (80-100); Platelet Count Result 41 k/mm3 (150-375); Red Blood Count 3.26 M/mm3 (4.2-5.4); Red Cell Distribution Width 15.4 % (11.5-14.5); White Blood Count 3.4 K/mm3 (4.5-10.0)
[2023-01-22 14:17] LABS: INR 1.5; Prothrombin Time 18.7 Seconds (11.1-14.7)
[2023-01-22 14:18] LABS: Partial Thromboplastin Time 37.4 SECONDS (22.3-36.8)
== END 2023-01-22 13:11 | disposition home or self-care (01) ==
LOC: ANHSURGERY 13:16
PROVIDERS: Anesthesiology; PCP Nurse Practitioner Family; Visit Provider Obstetrics & Gynecology
DX: Z01.818 Encounter for other preprocedural examination (principal); D69.6 Thrombocytopenia, unspecified; K74.60 Unspecified cirrhosis of liver
CPT/HCPCS: 36415; 85027; 85055; 85610; 85730; 93005